=== PATIENT | female | born 1955 | race Two or more races ===

== ENCOUNTER 2016-08-06 12:42 | Emergency (ER) | payer MEDICARE, OTHER ==
[~2016-08-06] VITALS: Ht 157.5 cm; Wt 81.6 kg
[~2016-08-06 12:42] MED LIST: AMIT10TA PO; AMLO5TAB2 PO; AMOX1TAB11 PO; CARV6.252 PO; CRESTOR20 MG PO; DIAZ5TAB4 PO; DOXY100T PO; INSU100I13 SQ; LINA1TAB PO; LISI10TA2 PO; OMEG1CAP2 PO; PERP4TAB6 PO; VILA40TA PO
[2016-08-06 13:15] VITALS: BP 176/89
--- NOTE | 2016-08-06 14:16 | PHYS DOC ---
Past Medical History Past Medical History: Diabetes-Type II, High Cholesterol, Hypertension Past Surgical History: Cholecystectomy, Knee Replacement Alcohol Use: Sober Drug Use: None Adult General Chief Complaint Chief Complaint: OTHER COMPLAINTS [facility] Patient is a 61 year old female patient with history of hypertension high cholesterol and diabetes type 2 who presents today with the daughter, the daughter states we need to check patient's blood alcohol level to prove to the son in law she is not using alcohol. Patient states she stopped drinking years ago and has not drunk any alcohol. Patient has no complaint. Review of Systems Review of Systems Constitutional: Denies fever or chills [] Eyes: Denies change in visual acuity, redness, or eye pain [] HENT: Denies nasal congestion or sore throat [] Respiratory: Denies cough or shortness of breath [] Cardiovascular: No additional information not addressed in HPI [] GI: Denies abdominal pain, nausea, vomiting, bloody stools or diarrhea [] : Denies dysuria or hematuria [] Musculoskeletal: Denies back pain or joint pain [] Integument: Denies rash or skin lesions [] Neurologic: Denies headache, focal weakness or sensory changes [] Endocrine: Denies polyuria or polydipsia [] Psych-alcohol check Allergies Allergies Allergies Coded Allergies Type Severity Reaction Last Updated Verified morphine Allergy Intermediate rash 07/18/16 Yes Physical Exam Physical Exam Constitutional: Well developed, well nourished, no acute distress, non-toxic appearance. [] HENT: Normocephalic, atraumatic, bilateral external ears normal, oropharynx moist, no oral exudates, nose normal. [] Eyes: PERRLA, EOMI, conjunctiva normal, no discharge. [] Neck: Normal range of motion, no tenderness, supple, no stridor. [] Cardiovascular:Heart rate regular rhythm, no murmur [] Lungs & Thorax: Bilateral breath sounds clear to auscultation [] Abdomen: Bowel sounds normal, soft, no tenderness, no masses, no pulsatile masses. [] Skin: Warm, dry, no erythema, no rash. [] Back: No tenderness, no CVA tenderness. [] Extremities: No tenderness, no cyanosis, no clubbing, ROM intact, no edema. [] Neurologic: Alert and oriented X 3, normal motor function, normal sensory function, no focal deficits noted. [] Psychologic: Affect normal, judgement normal, mood normal. [] Current Patient Data Vital Signs Vital Signs Date Time Temp Pulse Resp B/P Pulse Ox O2 Delivery O2 Flow Rate FiO2 08/06/16 13:15 98.4 73 16 98 Room Air 98.4 EKG EKG [] Radiology/Procedures Radiology/Procedures [] Course & Med Decision Making Course & Med Decision Making Pertinent Labs and Imaging studies reviewed. (See chart for details) Patient is in the ED with no complaints. Patient presents with the daughter who is requesting we do an alcohol level check to prove to the son-in-law the patient is not drinking. Patient herself states she has not been using alcohol. She states she stopped drinking approximately 7 years ago. After talking to patient I informed the daughter we cannot forcefully do drugs/alcohol screen on grown-up adults who can make decisions for themselves. I told her if they feel patient has an alcohol problem they need to go to or get some help in rehabilitation center. Patient has no alcohol breath. Discharged in stable condition. Dragon Disclaimer Dragon Disclaimer This electronic medical record was generated, in whole or in part, using a voice recognition dictation system. Departure Departure Impression: Primary Impression: Well adult on routine health check Disposition: 01 HOME, SELF-CARE Condition: STABLE Referrals: RADHA CAMPUZANO MD (PCP) Follow up with your doctor in one week Patient Instructions: Medical Screening Exam Additional Instructions: We not do drugs/alcohol screen on grown-up adults who can make decisions for themselves. There is no indication to collect alcohol level on patient. If you are very concerned this patient could be using alcohol you need to follow-up with rehabilitation Center like for help. WILMA SANTACRUZ APRN Aug 06, 2016 14:16
== END 2016-08-06 14:25 | disposition home or self-care (01) ==
LOC: ER 12:42
DX: Z00.00 Encounter for general adult medical examination without abnormal findings (principal); I10 Essential (primary) hypertension; E78.00 Pure hypercholesterolemia, unspecified; E11.9 Type 2 diabetes mellitus without complications; Z88.5 Allergy status to narcotic agent
CPT/HCPCS: 99281

== ENCOUNTER → 2017-05-15 | Outpatient (CLI) | payer OTHER ==
[2016-08-15 11:12] VITALS: BP 144/60
--- NOTE | 2017-05-15 12:47 | RAD ---
DATE: 05/15/2017. EXAM: DIGITAL SCREEN BILAT W/CAD. HISTORY: Routine mammographic screening. COMPARISON: 05/30/2012. This study was interpreted with the benefit of Computerized Aided Detection (CAD). FINDINGS: The breast parenchyma is primarily fatty replaced. Breast parenchyma level density A.. There are no suspicious masses, microcalcifications or architectural distortion. A nodule superolaterally on the right has decreased in size. Scattered and vascular calcifications are benign. BI-RADS CATEGORY: 2 BENIGN FINDING(S). RECOMMENDED FOLLOW-UP: 12M 12 MONTH FOLLOW-UP. PQRS compliance statement: Patient information was entered into a reminder system with a target due date 05/15/2018 for the next mammogram. Mammography is a sensitive method for finding small breast cancers, but it does not detect them all and is not a substitute for careful clinical examination. A negative mammogram does not negate a clinically suspicious finding and should not result in delay in biopsying a clinically suspicious abnormality. "Our facility is accredited by the [employer] Mammography Program."
== END | disposition home or self-care (01) ==
LOC: MAMMO 10:40
PROVIDERS: ATTEND Family Medicine
DX: Z12.31 Encounter for screening mammogram for malignant neoplasm of breast (principal)
CPT/HCPCS: G0202; 77067

== ENCOUNTER → 2018-03-02 | Outpatient (CLI) | payer OTHER ==
[2016-08-15 11:12] VITALS: BP 144/60
[~2018-03-02] MED LIST changes: -AMLO5TAB2 PO; +AMLO5TAB7 PO
--- NOTE | 2018-03-02 16:41 | RAD ---
DATE: 03/02/2018 EXAM: MAMMO DONOVAN DIAG RT, BREAST BILATERAL HISTORY: Right breast lump COMPARISON: 05/15/2017 This study was interpreted with the benefit of Computerized Aided Detection (CAD). Breast Density: FATTY The breast parenchyma is primarily fatty replaced. Breast parenchyma level density A. FINDINGS: 2-D and 3-D tomosynthesis imaging was performed in CC and MLO projections. A marker was placed over the area of reported palpable concern superiorly in the right breast. There is an unchanged small smooth nodule laterally in the right breast. No new or enlarging breast densities are seen. Only fatty type tissues are seen in the area of reported palpable concern. Minimal benign type calcification is present. No suspicious microcalcifications have developed. Right breast ultrasound, 03/02/2018: A targeted ultrasound exam of the upper right breast was performed. Heterogeneous fibroglandular shadows are evident. No mass or unusual fluid collection is seen. IMPRESSION: 1. Stable right mammograms without evidence of malignancy. 2. The targeted right breast ultrasound reveals no abnormality. 3. Clinical surveillance is suggested. BI-RADS CATEGORY: 2 BENIGN FINDING(S) RECOMMENDED FOLLOW-UP: CLIN FOLLOW UP IMAGING CLINICALLY INDICATED PQRS compliance statement: Patient information was entered into a reminder system with a target due date for the next mammogram. Mammography is a sensitive method for finding small breast cancers, but it does not detect them all and is not a substitute for careful clinical examination. A negative mammogram does not negate a clinically suspicious finding and should not result in delay in biopsying a clinically suspicious abnormality. "Our facility is accredited by the [employer] Mammography Program."
== END | disposition home or self-care (01) ==
LOC: MAMMO 12:45
PROVIDERS: ATTEND Nurse Practitioner Gerontology
DX: R92.8 Other abnormal and inconclusive findings on diagnostic imaging of breast (principal); I10 Essential (primary) hypertension; E11.9 Type 2 diabetes mellitus without complications; E78.00 Pure hypercholesterolemia, unspecified; Z90.49 Acquired absence of other specified parts of digestive tract; Z79.4 Long term (current) use of insulin; Z82.49 Family history of ischemic heart disease and other diseases of the circulatory system; Z82.3 Family history of stroke
CPT/HCPCS: 76641; 77065; G0279; 77061

== ENCOUNTER → 2020-11-13 | Day surgery (SDC) | payer OTHER, MEDICAID ==
[~2020-11-13] VITALS: Ht 157.5 cm; Wt 180.0 kg
[~2020-11-13] MED LIST changes: +AMLO-186 PO; -AMLO5TAB7 PO; +CARV6.2511 PO; -CARV6.252 PO; +IV RINGERS,LACTATED 1000ML 1,000 ML IV SCH; +LISI10TA16 PO; -LISI10TA2 PO
[2020-11-13 08:28] VITALS: BP 127/67
[2020-11-13 10:15] VITALS: BP 114/63
--- NOTE | 2020-11-17 09:08 | PATHOLOGY ---
[facility] Accession Number: [id number] . 01 Material submitted: . colon - RANDOM COLON BIOPSY . 01 Clinical history: . DIARRHEA COLONOSCOPY . 02 Diagnosis: Colonic mucosa, random colon biopsies: - No significant pathologic abnormalities. . ([facility]:mm; 11/16/2020) [facility] 11/16/2020 1728 Local . 02 Comment: Sections of the random colon biopsy reveal multiple segments of colonic mucosa. There is no evidence of a chronic destructive colitis, lymphocytic colitis, or collagenous colitis. . ([facility]:mml; 11/16/2020) . 02 Electronically signed: . Slim Brown MD, Pathologist NPI- [id number] . 01 Gross description: . Received in formalin labeled "Leatha, Gloria, random colon BX" are multiple pena-brown soft tissue fragments measuring in aggregate 2.0 x 0.9 x 0.1 cm. The specimen is submitted entirely in A1. ([facility] [place]; 11/14/2020) [facility] 11/14/2020 1240 Local . 02 Pathologist provided ICD-10: R19.7, Z12.11 . 02 CPT . 338148 Specimen Comment: A courtesy copy of this report has been sent to [phone], [phone] Specimen Comment: [id number] Specimen Comment: Report sent to / DR BECKMAN Performed at: 01 [facility] [address], [place] [id number] MD Rich Saucedo MD Phone: [phone] Performed at: 02 [facility] [address] [place], [place] [id number] MD Slim Brown MD Phone: [phone]
== END | disposition home or self-care (01) ==
LOC: ENDOS 07:31
PROVIDERS: ATTEND Internal Medicine Gastroenterology
DX: R19.7 Diarrhea, unspecified (principal); K64.0 First degree hemorrhoids; K63.89 Other specified diseases of intestine; I10 Essential (primary) hypertension; E78.00 Pure hypercholesterolemia, unspecified; M19.90 Unspecified osteoarthritis, unspecified site; E11.9 Type 2 diabetes mellitus without complications; F32.9 Major depressive disorder, single episode, unspecified; Z86.73 Personal history of transient ischemic attack (TIA), and cerebral infarction without residual deficits; Z90.49 Acquired absence of other specified parts of digestive tract; Z98.890 Other specified postprocedural states; Z79.899 Other long term (current) drug therapy; Z79.84 Long term (current) use of oral hypoglycemic drugs; Z72.89 Other problems related to lifestyle; Z82.49 Family history of ischemic heart disease and other diseases of the circulatory system; Z88.6 Allergy status to analgesic agent
CPT/HCPCS: 45380; 88305